=== PATIENT | male | born 2000 | race Native Hawaiian/Other Pacific Islander ===

== ENCOUNTER 2019-04-26 19:44 | Emergency (ER) | payer OTHER ==
[~2019-04-26] VITALS: Ht 175.3 cm; Wt 83.9 kg
[2019-04-26 20:16] LABS: PLATELET COUNT 229 K/uL (142-355)
[2019-04-26 20:23] LABS: POTASSIUM 3.2 mmol/L (3.6-5.2); SODIUM 139 mmol/L (136-145)
[2019-04-26 21:10] VITALS: BP 137/75; TEMP 97.8
== END 2019-04-26 21:10 | disposition home or self-care (01) ==
LOC: ED 19:44
PROVIDERS: Emergency Medicine
DX: R07.89 Other chest pain (principal); F41.9 Anxiety disorder, unspecified
CPT/HCPCS: 80053; 80307; 82550; 82553; 84484; 85027; 99283